=== PATIENT | female | born 1940 | race African-American/Black ===

== ENCOUNTER → 2017-03-02 | Outpatient (CLI) | payer OTHER ==
[~2017-03-02] MED LIST: ACETAMINOPHEN325 M1 PO; ACTOS 30 MG TAB30 MG; ACTOS 30 MG TAB30 MG PO; ADALAT CC60 MG PO; ADALAT CC90 MG PO; ADVAIR; ALBUTEROL2.5 MG/0.5; ALBUTEROL2.5 MG/0.5 INH; ALDACTONE25 MG PO; AMARYL2 MG; AMARYL2 MG PO; AMARYL4 MG PO; AMLODIPINE BESY10 MG PO; ANTIVERT25 MG; ASA5UEC; ASA5UEC PO; ASPIRIN325 PO; ATIVAN0.5 MG PO; B COMPLETE1 EAC1; BUSPAR; BUSPAR PO; BUSPAR15 MG PO; BUSPIRONE PO; CARVEDILOL12.5 MG PO; CARVEDILOL6.25 MG PO; CATAPRES0.2 MG PO; CITRATE OF MAG296 ML PO; CLONIDINE HCL0.2 M2 PO; CLONIDINE HCL0.3 M3; CLONIDINE HCL0.3 M3 PO; COUMADIN 10MG T10 M1 PO; CRESTOR10 MG; CRESTOR10 MG PO; CRESTOR20 MG PO; DEMADEX20 MG PO; DETROL LA4 MG; DETROL LA4 MG PO; DOXYCYCLINE 10100 MG PO; DUONEB 2.5-0.5 M3 ML INH; ECOTRIN325 MG PO; ENALAPRIL MALEA20 MG PO; ENALAPRIL MALEAT5 M1 PO; ENOXAPARIN30 MG/0.1 SUBQ; FAMOTIDINE 40 M40 M1 PO; FAMOTIDINE40 MG PO; FISH OIL 1,001000 M2 PO; GLUCOPHAGE1000 MG PO; GLUCOSAMINE HC500 MG PO; HYDRALAZINE 2525 MG PO; HYDROCODON-ACE1 EACH PO; HYDROCODONE-AP1 EAC6 PO; IBUPROFEN 600600 M1 PO; IMDUR 60 MG TAB60 M1 PO; IRON325 PO; JANUVIA 50 MG T50 M1; JANUVIA 50 MG T50 M1 PO; KLOR-CON 1010 MEQ PO; LASIX 20 MG TAB20 MG PO; LASIX 40 MG TAB40 M2 PO; LEVAQUIN 500 M500 M1 PO; LEVEMIR SUBQ; LEVOTHROID PO; LEVOTHYROXINE0.05 MG PO; LIPITOR40 MG PO; MAG-OX 400 TAB400 M1 PO; MAGNESIUM OXID200 MG PO; MAGNESIUM OXID400 MG PO; MIRALAX17 GM PO; MUCINEX TA600 MG/TA2 PO; MUCINEX600 MG PO; NEPHROCAPS SOFT1 CAP; NIFEDICAL XL60 MG PO; NIFEDIPINE ER60 M1 PO; NITROGLYCERIN0.4 MG; NITROGLYCERIN0.4 MG SUBLING; NORCO 5-325 TA1 EACH PO; NORCO 7.5-3251 EACH PO; NORVASC5 MG PO; NOVOLOG100 UNIT/1 SUBQ; OSTERA TABLET1 EAC1 PO; PAROXETINE HCL30 MG PO; PAXIL10 MG; PAXIL30 MG PO; PEPCID40 MG PO; PLAVIX 75 MG TA75 M1 PO; PRILOSEC20 MG PO; PROTONIX40 M1 PO; RANEXA500 MG; RANEXA500 MG PO; SINGULAIR 10 MG10 M1 PO; TOPICORT 0.25%15 G1 TOP; TOPROL XL100 MG PO; TOPROL XL50 MG PO; TORSEMIDE20 MG; TORSEMIDE20 MG PO; TOVIAZ4 MG PO; UNICOMPLEX M TA1 TA1 PO; VALIUM5 MG; VALIUM5 MG PO; VASOTEC10 MG PO; VENTOLIN HFA 1818 GM INH; VESICARE10 M1 PO; VICODIN 5-5001 EACH PO; VITAMIN D3400 UNIT PO; WELLBUTRIN SR150 MG PO; ZOCOR40 MG PO; ZOFRAN ODT4 MG PO
[2017-03-02 10:55] LABS: CREATININE 1.8 mg/dL (0.6-1.0)
== END ==
LOC: CAT 10:05
PROVIDERS: Internal Medicine Pulmonary Disease
DX: C34.90 Malignant neoplasm of unspecified part of unspecified bronchus or lung (principal)

== ENCOUNTER → 2017-05-12 | Outpatient (CLI) | payer OTHER ==
[~2017-05-12] MED LIST changes: +POTASSIUM20 PO
== END ==
LOC: CAT 08:52
DX: I25.10 Atherosclerotic heart disease of native coronary artery without angina pectoris (principal); R91.1 Solitary pulmonary nodule; I51.7 Cardiomegaly; I70.0 Atherosclerosis of aorta; N28.89 Other specified disorders of kidney and ureter; I50.32 Chronic diastolic (congestive) heart failure; I12.9 Hypertensive chronic kidney disease with stage 1 through stage 4 chronic kidney disease, or unspecified chronic kidney disease; N18.3 Chronic kidney disease, stage 3 (moderate); E11.40 Type 2 diabetes mellitus with diabetic neuropathy, unspecified; E03.9 Hypothyroidism, unspecified; G47.33 Obstructive sleep apnea (adult) (pediatric); I65.29 Occlusion and stenosis of unspecified carotid artery; I25.2 Old myocardial infarction; Z87.891 Personal history of nicotine dependence; Z90.710 Acquired absence of both cervix and uterus; Z85.118 Personal history of other malignant neoplasm of bronchus and lung; Z86.718 Personal history of other venous thrombosis and embolism

== ENCOUNTER → 2017-06-07 | Outpatient (CLI) | payer OTHER ==
--- NOTE | ~2017-06-07 | CNG ---
[facility] [place] [place] [address] CYTO-NONGYN REPORT PROCEDURE Name: ADELINA CROWE Room #: REG [facility] M..#: [id number] Admission: 06/07/17 Date of : 38 Discharge: Report #: [id number] Path Case #: [id number] CYTOPATHOLOGY REPORT COLLECTION DATE: 06/07/2017 RECEIVED DATE: 06/07/2017 SUBMITTING PHYS: Dr. Rufino Mercado OTHER PHYS: ELEAZAR Feliz CLINICAL HISTORY: Right thyroid nodule. SPECIMEN(S) RECEIVED: A.US guided Fine needle aspiration, Right thyroid nodule * * * * * * * * * * * * FINAL DIAGNOSIS: Thyroid, right thyroid nodule, ultrasound-guided fine needle aspiration: - BETHESDA CATEGORY II BENIGN, COMPATIBLE WITH AN ADENOMATOID NODULE (PLEASE SEE COMMENT). COMMENT: Examination shows numerous groups of thyroid follicular cells and macrofollicles, hemosiderin laden macrophages, and abundant watery colloid. The findings are compatible with a benign adenomatoid nodule with macrofollicular architecture. Nuclear features of papillary thyroid carcinoma are not identified. Please note, sample represents a minute portion of a larger lesion and may not be health and safety representative. Correlate clinically and follow-up as indicated. (IUV:mikayla; 06/08/2017) PATHOLOGIST: Jessica Ibarra M.D. REPORT ELECTRONICALLY SIGNED BY: Jessica Ibarra M.D. DATE/TIME: 06/08/2017 16:13 * * * * * * * * * * * * GROSS PATHOLOGY: A. US guided Fine needle aspiration, Right thyroid nodule: The specimen is labeled "Adelina Crowe" and consists of three fixed slides, three air dried slides. Thirty mL of clear red fluid in fixative from the needle rinse is also submitted and one ThinPrep slide and a alcohol fixed cell block were prepared from this material. Also received is the RNARetain vial which will be held for molecular studies if needed. (clt 06.07.2017) SANDBLASTER SUPERVISOR(S): TERRY Madrid(ASCP) INITIAL CPT CODE(S): [facility] [place] [address] CYTO-NONGYN REPORT PROCEDURE Name: ADELINA CROWE Room #: REG CL Gwen.#: [id number] Admission: 06/07/17 Date of : 38 Discharge: Report #: [id number] Path Case #: [id number]; [id number], [id number] Professional services performed by [facility] at [facility] [address] [place] [address] Technical services performed by [facility] at [address] [place] [address]., [address], [place] [address]. [facility] [address] [place] [address], [address] [place] [address] PHONE: [phone] DIRECTOR: Norman Hutchins M.D. * * * END OF REPORT * * *
== END | disposition home or self-care (01) ==
LOC: ULTRA 09:44
DX: E04.1 Nontoxic single thyroid nodule (principal)

== ENCOUNTER 2017-09-28 21:20 | Emergency (ER) | payer OTHER ==
[~2017-09-28] VITALS: Ht 165.1 cm; Wt 70.3 kg
[~2017-09-28 21:20] MED LIST changes: -POTASSIUM20 PO
[2017-09-28 22:24] LABS: ABSOLUTE NEUTROPHILS 4.4 thou/uL (1.4-8.2); BASOPHILS 0.5 % (0.0-2.0); EOSINOPHILS 1.8 % (0.0-3.0); HEMATOCRIT 25.6 % (37.0-47.0); HEMOGLOBIN 8.8 gm/dL (12.0-15.0); MCH 30.9 pg (26.0-34.0); MCHC 34.5 g/dL (28.0-37.0); MCV 89.5 fL (80.0-100.0); MONOCYTES 9.7 % (1.0-8.0); PLATELET COUNT 213 thou/uL (150-400); RBC 2.86 mil/uL (4.20-5.00); RDW 14.3 % (10.5-14.5); WBC 6.4 thou/uL (4.0-11.0)
[2017-09-28 22:26] LABS: CALCIUM 8.6 mg/dL (8.5-10.1); POTASSIUM 3.8 mmol/L (3.5-5.1)
[2017-09-28 22:32] LABS: ALBUMIN 3.3 g/dL (3.4-5.0); TOTAL BILIRUBIN 0.3 mg/dL (<0.1-1.0); TOTAL PROTEIN 6.5 g/dL (6.4-8.2)
[2017-09-28 23:04] VITALS: BP 170/74
[2017-09-28] MEDS ORDERED: POTASSIUM20 PO (23:12)
== END 2017-09-28 23:15 | disposition home or self-care (01) ==
LOC: ER 21:20
PROVIDERS: Emergency Medicine
DX: I11.0 Hypertensive heart disease with heart failure (principal); I50.9 Heart failure, unspecified; E11.9 Type 2 diabetes mellitus without complications; E78.5 Hyperlipidemia, unspecified; K21.9 Gastro-esophageal reflux disease without esophagitis; M54.9 Dorsalgia, unspecified; G89.29 Other chronic pain; M19.90 Unspecified osteoarthritis, unspecified site; I25.10 Atherosclerotic heart disease of native coronary artery without angina pectoris; F41.9 Anxiety disorder, unspecified; F32.9 Major depressive disorder, single episode, unspecified; Z87.891 Personal history of nicotine dependence; Z88.8 Allergy status to other drugs, medicaments and biological substances; Z95.5 Presence of coronary angioplasty implant and graft; Z90.710 Acquired absence of both cervix and uterus; Z90.89 Acquired absence of other organs; Z79.4 Long term (current) use of insulin; Z90.2 Acquired absence of lung [part of]

== ENCOUNTER → 2017-10-04 | Outpatient (CLI) | payer OTHER ==
[~2017-10-04] MED LIST changes: +POTASSIUM20 PO
== END ==
LOC: CAT 13:13
DX: E04.1 Nontoxic single thyroid nodule (principal); N28.9 Disorder of kidney and ureter, unspecified; R91.8 Other nonspecific abnormal finding of lung field

== ENCOUNTER 2018-05-25 15:40 | Inpatient (IN) | payer OTHER ==
[~2018-05-25] VITALS: Ht 165.1 cm; Wt 68.0 kg
[2018-05-25 15:43] VITALS: BP 150/70
[2018-05-25 17:05] LABS: ABSOLUTE NEUTROPHILS 3.5 thou/uL (1.4-8.2); BASOPHILS 0.6 % (0.0-2.0); EOSINOPHILS 1.7 % (0.0-3.0); HEMATOCRIT 26.7 % (37.0-47.0); HEMOGLOBIN 8.8 gm/dL (12.0-15.0); LYMPHOCYTES 20.8 % (24.0-44.0); MCH 29.3 pg (26.0-34.0); MCHC 33.2 g/dL (28.0-37.0); MCV 88.2 fL (80.0-100.0); MONOCYTES 8.6 % (1.0-8.0); PLATELET COUNT 207 thou/uL (150-400); POLYS 68.3 % (36.0-66.0); RBC 3.02 mil/uL (4.20-5.00); RDW 14.9 % (10.5-14.5); WBC 5.1 thou/uL (4.0-11.0)
[2018-05-25 17:11] LABS: ANION GAP 9 mmol/L (7-16); BUN 25 mg/dL (7-18); CALCIUM 8.8 mg/dL (8.5-10.1); CHLORIDE 107 mmol/L (98-107); CO2 26 mmol/L (21-32); CREATININE 1.8 mg/dL (0.6-1.0); GLUCOSE 156 mg/dL (74-106); POTASSIUM 3.4 mmol/L (3.5-5.1); SODIUM 142 mmol/L (136-145)
[2018-05-25 17:20] LABS: TROPONIN-I <0.06 ng/mL (<0.06)
[2018-05-25 17:58] LABS: URINE BILIRUBIN NEGATIVE (Negative); URINE BLOOD NEGATIVE (Negative); URINE CLARITY CLEAR; URINE COLOR YELLOW; URINE GLUCOSE-RANDOM* NEGATIVE (Negative); URINE KETONES NEGATIVE (Negative); URINE LEUKOCYTES-REFLEX TRACE (Negative); URINE NITRITE-REFLEX NEGATIVE (Negative); URINE PROTEIN (DIPSTICK) 2+ (Negative); URINE UROBILINOGEN 0.2 E.U./dl (0.2-1.0)
[2018-05-25 18:13] LABS: BACTERIA-REFLEX None Seen /HPF (None Seen); CRYSTALS None Seen /LPF (None Seen); HYALINE CASTS 0-3 Few /LPF (None Seen); SQUAMOUS 4-10 Moderate /LPF (0-3); URINE RBC None Seen /HPF (0-2); URINE WBC-REFLEX 0-5 Rare /HPF (0-5)
[2018-05-25 18:24] VITALS: BP 150/70
[2018-05-25 18:41] LABS: CHOLESTEROL 167 mg/dL (<200); HDL CHOLESTEROL 53 mg/dL (>40); LDL CHOLESTEROL 93 mg/dL (<100); TC:HDL 3.2 Ratio (Not establshd); TRIGLYCERIDE 105 mg/dL (<150); VLDL 21 mg/dL (<40)
[2018-05-25] MEDS ORDERED: PAXIL10 MG PO (18:46)
[2018-05-25] MEDS ORDERED: RANEXA500 MG PO (18:46)
[2018-05-25] MEDS ORDERED: SINGULAIR 10 MG10 M1 PO (18:46)
[2018-05-25] MEDS ORDERED: VITAMIN D5000 UNIT PO (18:47)
[2018-05-25 22:15] VITALS: BP 188/95
[2018-05-26 00:30] VITALS: BP 156/89
[2018-05-26 03:30] VITALS: BP 150/86; BP 150/886
[2018-05-26 07:20] VITALS: BP 211/101
--- NOTE | 2018-05-26 08:56 | NUR ---
PT A&OX4, IV INTACT IN R AC. AMBULATES WITH STAND BY ASSIST. TELE IS NSR. PT VERY [place] AND HAS NO HEARING AIDS. BP ELEVATED THIS AM SEE FLOWSHEET. WILL NOTIFY HOSPITALIST, SCHED BP MEDS GIVEN. WILL CONT. POC.
--- NOTE | 2018-05-26 09:02 | NUR ---
PATIENT IS ALERT AND ORIETNED. PATIENT VERY [place]. PATIENT HAS MOMENTS OF SYNCOPE FALL PRECAUTIONS IN PLACE. PATIENT IS ON 2L NC PRN WHICH IS BASELINE. PATIENTS BP WAS ELEVATED AT THE START OF SHIFT. BP IMPROVED THROUGH SHIFT. PATIENT IS CONTIENT. PATIENT IS RESTING COMFORTABLEY IN BED. WCM.
[2018-05-26 16:00] VITALS: BP 147/70
[2018-05-26 19:21] VITALS: BP 169/76
[2018-05-27 04:24] VITALS: BP 192/85
--- NOTE | 2018-05-27 04:29 | NUR ---
PATIENT AOX3 MAKES NEEDS KNOWN. PATIENT WAS CALM AND COOPERATIVE WITH MEDS AND CARE. PATIENT AMBULATES WITH STEADY GAITS IN THE ROOM AND IN THE BATHROOM. PATIENT DENIED PAIN OR DISCOMFORT. PATIENT HAD NO SYNCOPE THIS SHIFT. FALL PRECAUTION IN PLACE. PATIENT CALL APPROPRIATELY. PATIENT IN BED ASLEEP AT THIS TIME BREATHING REGULAR AND UNLABOURED.
[2018-05-27 05:14] LABS: CALCIUM 8.5 mg/dL (8.5-10.1); CREATININE 1.8 mg/dL (0.6-1.0); POTASSIUM 3.4 mmol/L (3.5-5.1)
[2018-05-27 07:32] VITALS: BP 176/77
[2018-05-27 07:39] VITALS: BP 156/102
--- NOTE | 2018-05-27 07:54 | NUR ---
PT A&OX4, IV INTACT IN R AC. AMBULATES WITH STAND BY ASSIST AND WALKER. LAC COURTE OREILLES. PT C/O SOME DIZZINESS THIS AM, BP-176/77 P-64. WILL TREAT WITH AM SHED. MEDS.
[2018-05-27 16:02] VITALS: BP 169/81
[2018-05-27 19:08] VITALS: BP 170/79
[2018-05-28 03:08] VITALS: BP 187/88
--- NOTE | 2018-05-28 06:22 | NUR ---
PT STATES COMPLIANTS OF N/V OR LIGHTHEADEDNESS. BP SLIGHTLY ELEVATED, GAVE PO BP MEDS AT 2100. A STRESS TEST IS SCHEDULED FOR TODAY. PT WAS NOT NPO STATUS. MOVED PT TO NPO STATUS AND ENTERED ORDER. PT UP TO BATHROOM WITH SBA. CALL LIGHT USED TO EFFECTIVENESS. HOURLY ROUNDING.
--- NOTE | 2018-05-28 08:02 | EKG ---
[place] [address] [facility] [place] [address] ELECTROCARDIOGRAM REPORT Name: SEBASTIENADELINAAARON WILSON Room #: 357-P ADM IN M.R.#: [id number] ������������������ Admission: 05/25/18 ������������������ Attend Phys: Phyllis Kruse Discharge: ������������������ Date of : 38 Report #: [id number] ����������������������������������������������������������������� [id number] THIS REPORT FOR: //name// [facility] ED Test Date: 2018-05-25 Test Time: 16:58:03 Pat Name: ADELINA CROWE Department: Room: 357 Gender: F [employer] Pinner: TATIANA : 1940 Requested By: Elias Angela Order Number: [id number] MD: Giuseppe Rivera Measurements Intervals [place] Rate: 60 P: 41 TN: 174 QRS: 19 QRSD: 96 T: 160 QT: 458 QTc: 458 Interpretive Statements Sinus rhythm Abnormal T, consider ischemia, lateral leads Compared to ECG 11/28/2015 18:29:02 Lateral T wave abnormality more prominent Electronically Signed On 05-28-2018 8:01:56 CDT by Giuseppe Rivera [email or web address] ��������������������������������������������� <ELECTRONICALLY SIGNED> ���������������������������������������� By: Giuseppe Rivera MD, [facility] ��������������������������������������������� 05/28/18800 [id number] Giuseppe Rivera MD, [facility] /EPI
[2018-05-28 08:57] VITALS: BP 190/56
--- NOTE | 2018-05-28 09:40 | NUR ---
ASSESSMENT: CM REVIEWED CHART AND MET WITH PATIENT AT THE BEDSIDE. PT IS VERY HARD OF HEARING. PT WAS ADMITTED WITH CHEST PAIN/SYNCOPE. PT REPORTS SHE LIVES IN AN APT ALONE BUT STATES HER FAMILY ROTATES STAYING WITH HER AND SHE IS NEVER REALLY ALONE. PT ALSO HAS A CAREGIVER THAT COMES IN DAILY FOR 2-3 HOURS TO HELP WITH CHORES THROUGH HER MEDICAID. PT HAS NO STEPS TO ENTER HER APT AND REPORTS USING A WALKER FOR AMBULATION. PT HAS BEEN TO [facility] IN THE PAST YEARS AGO AND HAS ALSO HAD HH IN THE PAST BUT UNSURE THE AGENCY. PT IS HOPEFUL TO RETURN HOME. PT/OT EVALS PENDING. PATIENT IS TO HAVE STRESS TEST. CM WILL CONTINUE TO FOLLOW TO ASSIST NEEDED. CM SPOKE WITH PATIENTS DAUGHTER MARCELO TO UPDATE.
--- NOTE | 2018-05-28 13:08 | NUR ---
CALLED TO NUC TO ASSESS PT POST LEXISCAN INJ AND AWAITS POST NUC SCAN. PT WAS GIVEN AMINOPHYLLINE POST LEXISCAN TO REVERSE FOR S/S N/V. PT DID SIT ON TOILET AND HAVE LOOSE BM. ZOFRAN GIVEN 4M IVP TO PT RE N/V. FLOOR RN UPDATED. VSS.
[2018-05-28 13:44] VITALS: BP 191/85
--- NOTE | 2018-05-28 15:55 | NUR ---
HAD NUCLEAR STRESS TEST DONE THIS AFTERNOON. SHE DID TOLERATE THE VARIOUS DRINKS WELL. SHE FELT SICK AND WAS GIVEN ZOFRAN. BUT TEST WAS COMPLETED SUCCESSFULLY. SHE AMBULATES IN ROOM WITH WALKER WITH STAND BY ASSIST. BLOOD SUGAR HAS BEEN UNDER CONTROL ALL DAY. DENIES PAIN AT THIS TIME. BP HAS BEEN HIGH THROUGH THE DAY DESPITE ANY MEDS GIVEN. WILL CONT WITH PLAN OF CARE.
[2018-05-28 17:34] VITALS: BP 137/70
[2018-05-28 19:43] VITALS: BP 179/83
[2018-05-29] VITALS (7 sets, daily range): BP systolic 158–199; BP diastolic 76–83
--- NOTE | 2018-05-29 04:42 | NUR ---
Patient progressing towards outcome goals. Vital signs and rhythm stable. No chest pain. High fall risks, precautions in place.
[2018-05-29 06:29] LABS: FOLIC ACID 19.6 ng/mL (8.6-58.9); TSH 0.934 uIU/mL (0.358-3.740)
--- NOTE | 2018-05-29 12:03 | NUR ---
ATTEMPTED PT EVALUATION AGAIN TODAY. Pt REFUSING PT EVALUATION AT THIS TIME, STATED SHE HAD GOTTEN BAD NEWS FROM THE DOCTOR. PER Pt, SHE HAS BEEN UP IN ROOM WITH NURSING STAFF USING WALKER. 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 NO STEPS. USES FWW FOR MOBILITY MODIFIED INDEPENDENT. PT WILL CONTINUE TO ATTEMPT EVALUATION HOWEVER Pt WAS NOT AGREEABLE TO HAVING PT CHECK BACK FOR EVALUATION THIS AFTERNOON.
--- NOTE | 2018-05-29 13:58 | NUR ---
ON-GOING ASSESSMENT: CM REVIEWED CHART. PATIENT HAD POSITIVE STRESS TEST AND CARDIOLOGY IS CONSULTED. PT REFUSED PT/OT TODAY. CM MET WITH PATIENT AND DISCUSSED POSSIBLE NEED FOR POST ACUTE CARE AND IF SO THE IMPORTANCE OF WORKING WITH THERAPY. PATIENT STATING SHE GOT BAD NEWS FROM THE DOCTOR AND ONLY WANTS TO DO ONE THING AT A TIME STATING SHE IS NOT EVEN SURE WHAT IS WRONG YET AND DOES NOT WANT TO DISCUSS POSSIBLE DISCHARGE PLANS. DISCUSSED THAT IF PATIENT DECIDES TO GO TO A SNF IT SOMETIMES TAKE A DAY OR TWO TO HEAR BACK FROM INSURANCE. CM OFFERED TO PROVIDE PATIENT WITH A SNF LIST TO REVIEW INCASE SHE NEEDS TO GO TO A SNF AT DISCHARGE. PT STATING SHE DOES NOT WANT IT RIGHT NOW AND THAT IS SOMETHING SHE WOULD HAVE TO THINK ABOUT. CM WILL FOLLOW UP IN THE AM.
--- NOTE | 2018-05-29 15:34 | NUR ---
PATIENT REFUSED THERAPIES TODAY STATING " GAVE ME BAD NEWS TODAY SO I AM NOT DOING ANY THERAPY". BP REMAINS HIGH. SHE DENIES PAIN AT THIS TIME. HAS SLEPT MOST OF THE DAY. WILL CONT WITH PLAN OF CARE.
--- NOTE | 2018-05-30 05:52 | NUR ---
Assumed care of pt at 1900. Pt alert and oriented x4. Can be impulsive. Very hard of hearing. Elevated blood pressure. Scheduled and prn bp meds administered. Rechecker on duty notified. Am labetalol administered early. Call light within reach. Will continue to monitor.
[2018-05-30 07:13] VITALS: BP 198/82
[2018-05-30 11:55] VITALS: BP 204/89
[2018-05-30 15:16] VITALS: BP 184/88
--- NOTE | 2018-05-30 15:31 | NUR ---
ON-GOING ASSESSMENT: CARDIOLOGY WAS CONSULTED YESTERDAY AND STILL WAITING FOR THEM TO SEE PATIENT AND RECOMMENDATIONS. PTS BLOOD PRESSURE RUNNING VERY HIGH TODAY INTERFERING WITH PATIENT WORKING WITH THERAPIES. CM WILL CONTINUE TO FOLLOW.
--- NOTE | 2018-05-30 16:27 | NUR ---
Assumed care of patient at 0700. BP remains high; physicians are adjusting medications to help better control. Otherwise, VSS. Patient with complaints of headache throughout day; explained symptom of HTN can be headache. Offered Tylenol or [place] or cool washcloth, patient denied. Complaints of nausea this morning, Zofran administered. Also complaints of itching. States liquid Benadryl works better than pills. Changed to liquid and adminstered with good effect. Patient is alert and oriented, extremely hard of hearing. Lots of frustration and questions regarding blood pressure control. Consult called in to Dr. Gunn again today; spoke with staffing account manager who states Dr. Gunn will see patient this afternoon regarding positive stress test. Patient up with SBA to BSC. Fall precautions in place, calls appropriately. Up in chair this afternoon. Attempting to progress towards POC. Will continue to monitor.
[2018-05-30 20:34] VITALS: BP 206/91
[2018-05-31] VITALS (7 sets, daily range): BP systolic 163–201; BP diastolic 67–91
--- NOTE | 2018-05-31 03:34 | NUR ---
PATIENT IS PROGRESSING IN HER CARE PLAN. PATIENT DID EXHIBIT MARKED HYPERTENSION EARLY IN SHIFT WHICH WAS TREATED EFFECTIVELY THROUGH MEDICATIONS. ALL OTHER VITAL SIGNS STABLE. PATIENT HAD NO COMPLAINTS OF PAIN OR NAUSEA. ORIENTED, PATIENT IS ABLE TO CALL APPROPRIATELY AND PARTICIPATE IN CARE. SHE IS EXTREMELY HARD OF HEARING EFFORTS WERE TAKEN TO COMMUNICATE EFFECTIVELY WITH PATIENT. UP TO BEDSIDE COMMODE MULTIPLE TIMES WITH ASSISTANCE INCIDENT FREE. NURSE EDUCATED PATIENT ON IMPORTANCE OF HER BLOOD PRESSURE MEDICATIONS. PATIENT IS ANXIOUS FOR ANTICIPATED DISCHARGE TODAY. CONTINUE PLAN OF CARE.
[2018-05-31 05:11] LABS: HEMATOCRIT 24.9 % (37.0-47.0); HEMOGLOBIN 8.2 gm/dL (12.0-15.0); MCH 29.4 pg (26.0-34.0); MCHC 32.7 g/dL (28.0-37.0); MCV 89.8 fL (80.0-100.0); RBC 2.78 mil/uL (4.20-5.00); RDW 15.8 % (10.5-14.5); WBC 4.9 thou/uL (4.0-11.0)
[2018-05-31 05:23] LABS: CALCIUM 8.3 mg/dL (8.5-10.1); CREATININE 1.9 mg/dL (0.6-1.0); MAGNESIUM 1.6 mg/dL (1.8-2.4); POTASSIUM 3.9 mmol/L (3.5-5.1)
[2018-05-31] MEDS ORDERED: CLONIDINE HCL0.2 M2 PO (09:35)
[2018-05-31] MEDS ORDERED: TRANDATE 200 M200 M1 PO (09:35)
[2018-05-31] MEDS ORDERED: ASPIR 8181 MG PO (09:35)
[2018-05-31] MEDS ORDERED: VASOTEC10 MG PO (09:36)
--- NOTE | 2018-05-31 13:41 | NUR ---
ON-GOING ASSESSMENT: PATIENT HAS ORDERS TO DISCHARGE HOME TODAY WITH HH. CM MET WITH PT AT THE BEDSIDE TO DISCUSS HH. PT IS AGREEABLE AND HAS NO PREFERENCE OF HH AGENCY. [facility] AND THEY CONFIRMED THEY CAN ACCEPT PATIENT FOR HH SERVICES. CM FAXED DISCHARGE PAPERWORK TO [facility]. CM SPOKE WITH PATIENTS DAUGHTER LATOYCE TO NOTIFY OF DISCHARGE AND DISCUSS HH. PT REPORTS NO FURTHER QUESTIONS FROM CM AT THIS TIME.
--- NOTE | 2018-05-31 15:43 | NUR ---
Assumed care of patient at 0700. BP high this morning, but with adjustment of blood pressure medications, BP has been better throughout the rest of the shift. Otherwise, VSS. Alert and oriented x4. Denies pain and nausea. Up with SBA. Remains on 2L PRN comfort. Discharge orders received. Spoke with Dr. Gunn's nurse in office regarding discharge and increase in labetalol; update on blood pressures. Okay to DC per nurse. Patient to follow up in 2 weeks with nurse practitioner in office. Follow up appointment placed in discharge papers. Patient to also have home health. Updated patient on discharge today. Is still concerned with blood pressure at home, but explained to patient that home health will help her monitor her blood pressure and they can contact the doctor if it is too high. She can also call the doctor herself, if she takes her BP and it is too high. Verbalizes understanding. To review the rest of the DC instructions, follow up appointments and new prescriptions with patient and family at bedside this evening. Continue to monitor.
--- NOTE | 2018-06-01 15:35 | HC ---
[facility] [place] [place] [address] CONSULTATION Name: CROWEADELINA WILSON Room #: 357-P [facility] IN M.R.#: [id number] Admission: 05/25/18 ������������������ Attend Phys: Phyllis Kruse Discharge: 05/31/18 ������������������ Date of : 38 Report #: [id number] THIS REPORT FOR: //name// CC: Phyllis Driver NP DATE OF SERVICE: 05/30/2018 HISTORY OF PRESENT ILLNESS: The patient is a 77-year-old single black female who I was asked to see in the hospital today after she complained of being dizzy. The history is obtained from the patient's daughter who was present. The patient has an extensive past medical history. She is very hard of hearing. She is also very frail and ambulates with a walker. She has COPD and is on chronic oxygen. She has a history of lung cancer and has previous lobectomy. She currently lives with a son in [place], [place]. She has been followed by my partner, Dr. Meredith who recently retired. She has a history of coronary artery disease. She has had a previous coronary artery stenting. She was actually admitted here in 2013 with chest pain. She had an abnormal nuclear stress test. She has had previous stents placed in her right coronary artery. Dr. Saunders performed a cardiac catheterization that showed the stents in the right coronary were patent. The LAD had severe stenosis. Two bare metal stents were placed. The distal circumflex was occluded. It was decided to proceed with medical therapy. The patient recently has not had any chest pain. She does have chronic dyspnea. The patient's last echocardiogram was in 2015, showed ejection fraction 60%, left atrial enlargement, mild mitral regurgitation. She actually underwent a nuclear stress test 2 days ago here at [facility] using Lexiscan. There was moderately reduced uptake in the anterolateral wall, which improves with rest. This is consistent with ischemia. Her ejection fraction was 67%. The patient was last seen by Dr. Ellis in November. No changes were made in her medications at that time. The patient has not been feeling well for the past several days. She has been feeling lightheaded with no appetite and some nausea. Family finally brought to the Emergency Room 5 days ago. She denied any palpitations, vomiting, diarrhea or bleeding. She had a change in her blood pressure medications recently. There is no abdominal pain. PAST MEDICAL HISTORY: Otherwise significant for an appendectomy, carpal tunnel surgery, hysterectomy, lobectomy for lung cancer, parathyroidectomy. She has a history of hypertension, diabetes, hyperlipidemia. MEDICATIONS AT HOME: Consists of iron, aspirin, Singulair, insulin, Crestor, Lasix, Synthroid, Pepcid, amlodipine, insulin, Ranexa, Paxil, carvedilol, enalapril, hydralazine. ALLERGIES: No known drug allergies. [address] [address] CONSULTATION Name: ADELINA CROWE Room #: 357-P [facility] IN M.R.#: [id number] Admission: 05/25/18 ������������������ Attend Phys: Phyllis Kruse Discharge: 05/31/18 ������������������ Date of : 38 Report #: [id number] FAMILY HISTORY: Her father had heart disease. SOCIAL HISTORY: She is , lives with son in [place], [place]. Quit smoking years ago. No alcohol use. REVIEW OF SYSTEMS: She has had no history of stroke. She does have COPD. No history of peptic ulcer disease, liver disease. She has chronic kidney disease, no psychiatric illness. No chronic skin condition. PHYSICAL EXAMINATION: GENERAL: Revealed an elderly female lying in bed. She appeared in no distress. VITAL SIGNS: She had a blood pressure of 190/80, pulse 70. She is afebrile. HEENT: She was anicteric, conjunctiva pink. Mucous membranes appear dry. NECK: Veins nondistended. CHEST: Clear to auscultation. CARDIOVASCULAR: Regular rate and rhythm. ABDOMEN: Soft. EXTREMITIES: Had no edema. Dorsalis pedis pulse cannot be palpated. SKIN: Cool and dry. NEUROLOGIC: Nonfocal. Her ECG on admission showed a sinus rhythm, T-wave inversion in 1, aVL, V5, V6. When compared to previous ECG done in 2016, the T-wave changes were new. Additional workup since her hospitalization, she had a portable chest x-ray that showed normal heart size, clear lung ac. Calcified aorta. CT scan of the head was performed without contrast that showed only atrophy, small vessel disease. Previous carotid Doppler study back in 2014 showed a plaque in the left carotid bulb of 50-60%. LABORATORY DATA: Sodium 142, potassium 3.4, BUN 24, creatinine 1.8, glucose 122. Her troponin 0.06. Cholesterol 167, triglyceride 105, HDL 53, LDL 93. White blood cell count 5.1, hemoglobin 8.8, hematocrit 26.7, MCV 88. Previous ferritin is 118. B12 of 533. Folate 19.6. IMPRESSION AND RECOMMENDATIONS: 1. Dizzy spell. Reason unclear. The patient has been in sinus rhythm on the monitor. 2. Coronary artery disease. Abnormal nuclear stress test. Previous stent in the LAD. Known to have diffuse coronary artery disease. Since the patient is having no significant angina, I would recommend a conservative approach. I would not recommend repeat cardiac catheterization. 3. Hypertension. The patient has been on a calcium parviz, beta parviz, clonidine, YOHAN inhibitor. 4. Chronic obstructive pulmonary disease. 5. History of lung cancer. [facility] [address] [place] [address] CONSULTATION Name: CROWEADELNIA Room #: 357-P DIS IN M.R.#: [id number] Admission: 05/25/18 ������������������ Attend Phys: Phyllis Kruse Discharge: 05/31/18 ������������������ Date of : 38 Report #: [id number] 6. Anemia. No history of bleeding. 7. Hard of hearing. 8. Chronic kidney disease. 9. Previous tobacco abuse. ��������������������������������������������� <ELECTRONICALLY SIGNED> ���������������������������������������� By: Vitaly Gunn MD, FACC ��������������������������������������������� 06/01/18 1535 [id number] Vitaly Gunn MD, FACC /nt
== END 2018-05-31 18:49 | disposition home health service (06) | DRG 917 ==
LOC: ER 15:40 → 3W 18:09 → EROBS 18:09 → 3W 21:59 → ENTRNSPT 05-31 18:14 → 3W 05-31 18:49
PROVIDERS: Emergency Medicine; Nurse Practitioner Family; ADMIT Hospitalist
DX: T46.5X1A Poisoning by other antihypertensive drugs, accidental (unintentional), initial encounter (principal); E43 Unspecified severe protein-calorie malnutrition; N18.4 Chronic kidney disease, stage 4 (severe); R55 Syncope and collapse; E78.5 Hyperlipidemia, unspecified; K21.9 Gastro-esophageal reflux disease without esophagitis; M19.90 Unspecified osteoarthritis, unspecified site; G89.29 Other chronic pain; M54.9 Dorsalgia, unspecified; I25.10 Atherosclerotic heart disease of native coronary artery without angina pectoris; G47.33 Obstructive sleep apnea (adult) (pediatric); F41.9 Anxiety disorder, unspecified; E11.22 Type 2 diabetes mellitus with diabetic chronic kidney disease; D50.9 Iron deficiency anemia, unspecified; E87.6 Hypokalemia; E03.9 Hypothyroidism, unspecified; E83.42 Hypomagnesemia; F32.9 Major depressive disorder, single episode, unspecified; I12.9 Hypertensive chronic kidney disease with stage 1 through stage 4 chronic kidney disease, or unspecified chronic kidney disease; Z93.0 Tracheostomy status; Z88.8 Allergy status to other drugs, medicaments and biological substances; Z87.891 Personal history of nicotine dependence; Z82.49 Family history of ischemic heart disease and other diseases of the circulatory system; Z79.4 Long term (current) use of insulin; Z90.710 Acquired absence of both cervix and uterus; Z90.49 Acquired absence of other specified parts of digestive tract; Z86.718 Personal history of other venous thrombosis and embolism; Z95.5 Presence of coronary angioplasty implant and graft; Z85.118 Personal history of other malignant neoplasm of bronchus and lung; Z79.82 Long term (current) use of aspirin; Z79.899 Other long term (current) drug therapy
CPT/HCPCS: 10879

== ENCOUNTER → 2018-11-27 | Outpatient (CLI) | payer OTHER ==
[~2018-11-27] MED LIST changes: +ASPIR 8181 MG PO; +PAXIL10 MG PO; +TRANDATE 200 M200 M1 PO; +VITAMIN D5000 UNIT PO
== END ==
LOC: ULTRA 11:41
DX: N60.02 Solitary cyst of left breast (principal); M79.9 Soft tissue disorder, unspecified; Z88.8 Allergy status to other drugs, medicaments and biological substances